=== PATIENT | male | born 1935 | race Two or more races ===

== ENCOUNTER 2017-06-16 09:32 | Emergency (ER) | payer MEDICARE ==
[~2017-06-16] VITALS: Ht 162.6 cm; Wt 78.0 kg
[2017-06-16 09:57] VITALS: BP 153/97
[2017-06-16] MEDS ORDERED: SODIUM CHLORIDE 0.9% 1,000 ML IV ONE (10:33)
[2017-06-16] MEDS ORDERED: ONDANSETRON HCL 4 MG/2 ML VIAL IV ONE (10:45)
[2017-06-16] MEDS ORDERED: KETOROLAC TROMETH 30 MG/ML 1ML VIAL IV ONE (10:45)
[2017-06-16 11:22] LABS: Basophils # (auto) 0 uL; Basophils % (auto) 0.3 % (0.0-2.0); Eosinophils # (auto) 0.2 uL; Hemoglobin 15.4 g/dL (13.5-17.5); Lymphocytes # (auto) 1.4 uL; Lymphocytes % (auto) 23.8 % (10.0-50.0); Mean Corpuscular Hemoglobin 29.4 pg (28.0-32.0); Mean Corpuscular Hgb Conc. 33.4 g/dL (32.0-36.0); Mean Corpuscular Volume 88.2 fL (80.0-100.0); Monocytes # (auto) 0.6 uL; Monocytes % (auto) 9.9 % (0.0-12.0); Neutrophils # (auto) 3.7 uL; Nucleated Red Blood Cells % 0.2 %; Platelet Count (auto) 248 10^3/uL (140-450); Red Blood Cells 5.22 10^6/uL (4.5-5.90); Red Cell Distribution Width 14.1 % (11.8-14.3); White Blood Cell 5.9 10^3/uL (4.4-10.8)
[2017-06-16 11:44] LABS: Alanine Aminotransferase 28 U/L (16-61); Alkaline Phosphatase 58 U/L (45-117); Anion Gap 10 (5-15); Aspartate Aminotransferase 22 U/L (15-37); BUN/Creatinine Ratio 16.7; Bilirubin, Total 0.5 mg/dL (0.2-1.0); Blood Urea Nitrogen 24 mg/dL (7-18); Calcium 8.9 mg/dL (8.5-10.1); Carbon Dioxide 25 mmol/L (21-32); Chloride 103 mmol/L (98-107); GFR African American 60 mL/min; GFR Non-African American 50 mL/min; Glucose 107 mg/dL (74-106); Magnesium 2.5 mg/dL (1.6-2.6); Sodium 138 mmol/L (136-145); Total Protein 8.8 g/dL (6.4-8.2)
[2017-06-16 12:03] LABS: Urine Bacteria NONE SEEN /hpf (None Seen); Urine Blood Negative /uL (Negative); Urine Mucus FEW (None Seen); Urine Specific Gravity 1.023 (1.001-1.035); Urine WBC 1 /hpf (0 - 3)
== END 2017-06-16 12:48 | disposition home or self-care (01) ==
LOC: ER 09:32
DX: M54.12 Radiculopathy, cervical region (principal); T88.7XXA Unspecified adverse effect of drug or medicament, initial encounter; I10 Essential (primary) hypertension; Y92.89 Other specified places as the place of occurrence of the external cause
CPT/HCPCS: 36415; 71046; 72125; 80053; 81001; 83735; 84443; 84484; 85025; 93005; 94761; 96361; 96374; 96375; 99285; J1885; J2405; J7030